=== PATIENT | male | born 1950 | race Caucasian/White ===

== ENCOUNTER 2017-03-01 08:43 | Inpatient (IN) | payer MEDICARE, SELFPAY ==
--- NOTE | ~2017-03-01 | CN ---
Consultation Report [facility] [place] [address] [place]. [address] NAME: CAROL NASSAR : 48 STATUS : ADM IN PAT#: [id number] AGE: 66 ADM/REG DATE : 03/01/17 MR#: [id number] REPORT SERV DATE: 03/03/17 DICTATED BY: YODIT DWYER DATE: 03/03/17 REPORT STATUS : Draft TRANSCRIBED BY: MODL DATE: 03/03/17 HOSPITALIST CONSULTATION DATE OF CONSULTATION: 03/02/2017 REASON FOR CONSULTATION: Diabetes management per Dr. Donovan Amaya. HISTORY OF PRESENT ILLNESS: This is an awake, alert and oriented, very pleasant 66-year-old, male, who was admitted today to Dr. Amaya for placement of AICD today in a patient with an extensive cardiac history. We have been asked to manage his diabetes while he is here. Currently, his most recent blood sugar by fingerstick is 424. The patient reports a 10-year history of diabetes with his metformin on hold until tomorrow (03/03) due to his recent procedure, and he also received Solu-Medrol today in procedure. The patient reports that his home blood sugars are well controlled, and he takes his medication exactly as prescribed. He does confirm he is a daily smoker and uses a CPAP machine as ordered at night. He is complaining at this time of shortness of breath with exertion that resolves with rest and oxygen placed by nasal cannula. He currently denies chest pain, palpitations, headaches, dizziness, nausea, vomiting, diarrhea, or abdominal pain. PAST MEDICAL HISTORY: Significant for: 1. Coronary artery disease. 2. DVT. 3. Dysrhythmias. 4. High cholesterol. 5. Hypertension. 6. Previous SC. 7. CHF. 8. Sleep apnea. 9. ARDS. 10.Pulmonary embolus. 11.Osteoarthritis. 12.GERD. 13.Hemorrhoids. 14.Prostate problems. 15.Type 2 diabetes. 16.Anxiety. PAST SURGICAL HISTORY: Significant for: 1. Cholecystectomy, 1995. 2. CABG x3, post cardiac cath, 1994. 3. Bessie filter placed, 1995. The patient's PCP is Dr. Julian Meza, and [facility]. SOCIAL HISTORY: The patient is and lives at home with his . He is retired as Consultation Report [place] [address] [place]. [address] NAME: CAROL NASSAR : 48 STATUS : ADM IN PAT#: [id number] AGE: 66 ADM/REG DATE : 03/01/17 MR#: [id number] REPORT SERV DATE: 03/03/17 DICTATED BY: YODIT DWYER DATE: 03/03/17 REPORT STATUS : Draft TRANSCRIBED BY: MODL DATE: 03/03/17 previously stated. He is a daily one pack per day smoker since age 14. He denies alcohol and illicit drug use. FAMILY HISTORY: Mother had a history of diabetes and with complications from CHF at age 60. Father at age 41 from a "massive heart attack." The patient also has one brother who from lung complications. Two other brothers who from heart attacks. He has two brothers who are currently living, one has survived a heart attack and one has no medical problems. ALLERGIES: 1. INCLUDE EKG PADS, ADHESIVE TAPE. 2. ASPIRIN. 3. VANCOMYCIN. 4. DICLOXACILLIN. HOME MEDICATIONS: Include: 1. Tylenol 650 mg p.o. twice daily. 2. Norvasc 5 mg p.o. daily. 3. Artificial tears 0.3 mL each eye p.r.n. 4. Aspirin enteric coated 81 mg p.o. daily. 5. Carvedilol 12.5 mg p.o. twice daily. 6. Zyrtec 10 mg p.o. at bedtime. 7. Lantus 70 units subcutaneous at bedtime. 8. Metformin ER 1000 mg p.o. twice daily. 9. Nitrostat 0.4 mg sublingual p.r.n. chest pain. 10.Prilosec 20 mg p.o. daily. 11.Penicillin-VK 250 mg p.o. q.12 hours. 12.Zocor 20 mg p.o. at bedtime. 13.Demadex 50 mg p.o. daily. 14.Unknown sedative reported as "flurazepam" 30 mg p.o. at bedtime. 15.Warfarin 5 mg p.o. daily. REVIEW OF SYSTEMS: A complete 10-point review of systems was negative except as per HPI. PHYSICAL EXAMINATION: VITAL SIGNS: T 98.6, P 64, RR 20, BP 131/60, SpO2 94% on 3 L nasal cannula. GENERAL: A well-appearing male, in no acute distress. NEUROLOGIC: Awake, alert, and oriented x3 without focal deficit. HEENT: Normocephalic, atraumatic without lymphadenopathy. NECK: Supple. No JVD. LUNGS: Scattered wheezes noted in bilateral upper lobes. Diminished in bilateral bases with normal respiratory effort. CV: Regular rate and rhythm. S1, S2 auscultated. ABDOMEN: Soft, round, and nontender. Bowel sounds hypoactive in all quadrants. No masses. Consultation Report [place] [id number] [facility] [place]. [address] NAME: CAROL NASSAR : 48 STATUS : ADM IN [facility]#: [id number] AGE: 66 ADM/REG DATE : 03/01/17 MR#: [id number] REPORT SERV DATE: 03/03/17 DICTATED BY: YODIT DWYER DATE: 03/03/17 REPORT STATUS : Draft TRANSCRIBED BY: KENNY DATE: 03/03/17 EXTREMITIES: No cyanosis, with normal distal pulses and cap refill within normal limits. Generalized edema to bilateral lower extremities. PSYCH: Normal affect. SKIN: Clean, dry, and intact with mucous membranes pink and moist. Surgical dressing clean, dry, and intact to left chest from AICD placement. LABS: Fingerstick blood sugar ranges since arrival, 94 to 424. BUN and creatinine 21 and 1.34. Serum glucose 193. ASSESSMENT AND PLAN: 1. Insulin-dependent type 2 diabetes mellitus. This is chronic. We will increase his sliding scale insulin to level 2 and given additional 10 units of NovoLog now rechecking his blood sugar at 2 a.m. We will continue his Levemir and metformin back tomorrow. Per standard of care, we will monitor his labs. 2. Tobacco abuse. The patient has smoked one pack a day since approximately age 14 and declines nicotine patch at this time. He also declines smoking cessation assistance during this admission; however, smoking cessation benefits were counseled and information was provided for resources to the patient and . 3. Sleep apnea. Again, this is chronic and patient is compliant with his CPAP at home. We will continue his home CPAP and encourage aggressive pulmonary toilet. We will provide oxygen p.r.n. as needed. 4. Dyspnea. The patient reports this has occurred with exertion and is likely related to the tobacco abuse, sleep apnea, and his recent procedure. Again, we will continue his home CPAP at night, aggressive pulmonary toilet, providing supplemental oxygen as needed, and encourage smoking cessation. 5. Post AICD placement that was done today, 03/02/[address] Amaya. The patient is currently on Tikosyn. We will defer management of this to the primary team and follow along with you. Thank you for this consult. We are pleased to follow this patient with you. This consult was completed through a thorough review of [employer], old records, [employer], and current chart as well as a thorough interview with the patient and . [facility] Yodit Dwyer NP / [id number] CC: Breonna Worthy M.D.
--- NOTE | ~2017-03-01 | DS ---
Discharge Summary [facility] [address] [place]. [address] NAME: CAROL NASSAR : 48 STATUS : DIS IN PAT#: [id number] AGE: 66 ADM/REG DATE : 03/01/17 MR#: [id number] REPORT SERV DATE: 03/17/17 DICTATED BY: NIVIA AMAYA DATE: 03/16/17 REPORT STATUS : Draft TRANSCRIBED BY: KENNY DATE: 03/16/17 Data Collection from hospitalization DISCHARGE DIAGNOSES: 1. Ischemic cardiomyopathy. 2. Ventricular tachycardia. 3. Paroxysmal atrial fibrillation. 4. Hypertension. 5. Type 2 diabetes mellitus. 6. Pulmonary hypertension. 7. Hyperlipidemia. 8. Tobacco use. CONSULTATIONS: Yodit Dwyer NP PROCEDURES PERFORMED: ICD implantation on 03/02/2017. MEDICATIONS: Tylenol 650 mg twice a day, Norvasc 5 mg daily, Brovana 15 mcg via inhaler twice a day, Refresh solution 0.3 mL as needed, aspirin 81 mg daily, Pulmicort 0.5 mg via inhaler twice a day, Coreg 25 mg twice a day, Zyrtec 10 mg at bedtime, Tikosyn 500 mcg twice a day, Lantus 70 units subcutaneously at bedtime, Fortamet 1000 mg twice a day, Nitrostat 0.4 mg sublingually as needed, Prilosec 20 mg daily, Pen VK 250 mg every 12 hours, Zocor 20 mg at bedtime, Demadex 50 mg daily, Ultram 50 mg every four hours as needed, flurazepam 30 mg at bedtime, and Jantoven 5 mg daily. CONDITION AT DISCHARGE: Stable. DISPOSITION: The patient was discharged home on an 1800-calorie cardiac/diabetic diet with activities as instructed. He would follow up with Dr. Julian Meza on 03/12/2017. He would follow up with Dr. Pedro Bellamy on 04/10/2017. He would follow up with Dr. Jonathon Sanchez on 04/19/2017. He would follow up with Dr. Nivia Amaya on 03/23/2017. He would follow up at the [facility] on 03/22/2017 and at the [facility] on 03/13/2017. HOSPITAL COURSE: This is a 66-year-old man. The patient has sick sinus syndrome, ischemic cardiomyopathy, and class III congestive heart failure. It was felt that he would need to undergo dual-chamber ICD implantation. He was in the hospital at this time for further evaluation and treatment. On the day following admission, the patient had no complaints. The patient was taken to the electrophysiology laboratory where he underwent the above-mentioned procedure. He tolerated this well, and there were no complications. This was performed by Dr. Real Herrera. Tikosyn loading began. The patient was seen by Yodit Dwyer regarding diabetes management. The patient reports a 10-year history of diabetes. His metformin was going to remain on hold until the following day due to his recent procedure. He also received some Solu-Medrol during his procedure. The patient said that at home his blood sugars are well controlled and that he takes his medication exactly as prescribed. He did confirm that he is a daily smoker and uses a CPAP machine as ordered at night. At this time, he was complaining of Discharge Summary [address] [address] NAME: CAROL NASSAR : 48 STATUS : DIS IN PAT#: [id number] AGE: 66 ADM/REG DATE : 03/01/17 MR#: [id number] REPORT SERV DATE: 03/17/17 DICTATED BY: NIVIA AMAYA DATE: 03/16/17 REPORT STATUS : Draft TRANSCRIBED BY: KENNY DATE: 03/16/17 shortness of breath with exertion that resolves with rest and oxygen by nasal cannula. Creatinine level was 1.34. Levemir and metformin were going to be continued. His sliding scale insulin was increased to level 2. The patient was encouraged to stop smoking. He declined a nicotine patch at this time. He also declined smoking cessation assistance during this admission. The patient is compliant with his CPAP at home. This would be continued and we encouraged aggressive pulmonary toilet. Oxygen would be provided as needed. The patient was currently on Tikosyn. On 03/03/2017, hemoglobin A1c was going to be checked. The patient was encouraged to lose weight. He said he was feeling better. Shortness of breath had decreased. He was in a sinus rhythm. On 03/04/2017, the patient did complain of some dyspnea when he was up to the bathroom. His postop hyperglycemia was felt likely steroid induced, it was now controlled. Insulin was decreased. He has had some volume overload the day previously. He was given Bumex. It was felt that he would need a home O2 evaluation prior to his discharge. He had mild edema. O2 saturation was 93% on 2 liters. The next day, he had distant breath sounds bilaterally. He desaturated overnight on BiPAP into the 80s. Home O2 was arranged. He was going to remain as an inpatient for another night for BiPAP adjustments. Hemoglobin A1c was 7.8. On 03/06/2017, he was alert and cooperative. He had no edema. Discharge instructions were given. Due to his improved and stable condition, he was discharged home with the above- stated instructions. Information collected by: Ilana Pollack I submit the above information as my discharge summary. TG/MODL Nivia Amaya M.D. / [id number] CC: Breonna Worthy M.D.
[~2017-03-01 08:43] MED LIST: ACET500CAP PO; ASA5GR PO; ASAEC PO; ATEN25 PO; ATEN50 PO; ATENOLOL PO; BETAP120 PO; BETAPACE80 PO; CORDARONE PO; COREG6 PO; DALMANE30 MG PO; DEMA100 PO; DIABETA5 PO; DILT-XR120 MG PO; DURICEF; DURICEF PO; Duricef PO; FLURAZEPAM30 MG PO; FORTAMET1000 MG PO; GLUCPH PO; HALF81 PO; JANTOVEN1 MG PO; JANTOVEN5 MG PO; JANTOVEN6 MG PO; JANTOVEN7.5 MG PO; L20 PO; LANTUS; LANTUS SC; LOTE10 PO; NATURA2 OP; NITROSTAT0.4 MG SL; NORV5 PO; PENVK250 PO; PREV15 PO; PRILO PO; REFRESH OPH; T PO; TYLENOL ARTH650 MG PO; ZOCOR20 PO; ZOCOR40 PO; ZYRTEC ALLGY10 MG PO; [UNRECOGNIZED DRUG - OTHER] PO
[2017-03-01 09:27] LABS: BASOPHILS 0.6 %; BASOPHILS ABSOLUTE 0.05 10/3/uL (0.0-0.16); EOSINOPHILS 2.3 %; HEMATOCRIT 47.5 % (40.0-51.0); HEMOGLOBIN 15.7 g/dL (13.6-17.8); IMMATURE GRANULOCYTES 0.3 %; IMMATURE GRANULOCYTES ABSOLUTE 0.03 10/3/uL (0.0-0.11); LYMPHOCYTES 27.8 %; LYMPHOCYTES ABSOLUTE 2.41 10/3/uL (0.67-4.30); MANUAL DIFF NO %; MEAN CORPUS HGB CONC 33.1 g/dL (32.0-36.0); MEAN CORPUSCULAR HEMOGLOB 26.7 pg (26.0-34.0); MEAN CORPUSCULAR VOLUME 80.6 fL (80-100); MEAN PLATELET VOLUME 9.9 fL (9.2-13.0); MONOCYTES 5.3 %; MONOCYTES ABSOLUTE 0.46 10/3/uL (0.21-1.20); NEUTROPHILS 63.7 %; NEUTROPHILS ABSOLUTE 5.51 10/3/uL (2.02-8.40); PLATELET COUNT 156 10/3/uL (150-400); RBC DISTRIBUTION WIDTH 16.9 % (12.0-16.0); RED CELL COUNT 5.89 10/6/uL (4.7-6.1); WHITE BLOOD CELLS 8.7 10/3/uL (4.5-10.5)
[2017-03-01 09:36] LABS: INTERNATIONAL NORMAL RATI 1.7 UNITS (-); PROTIME (NOT ORD) 19.4 SEC (12.0-14.5)
[2017-03-01 09:39] LABS: BUN (BLOOD UREA NITROGEN) 21 MG/DL (6-23); CALCIUM, SERUM 8.2 MG/DL (8.5-10.4); CHLORIDE, SERUM 105 MMOL/L (96-112); CO2 (CARBON DIOXIDE) 31 MMOL/L (24-34); CREATININE 1.49 MG/DL (0.70-1.30); GFR AFRICAN AMERICAN 55 ML/MIN (>=60); GFR NON AFRICAN AMERICAN 48 ML/MIN (>=60); GLUCOSE, SERUM 170 MG/DL (60-99); POTASSIUM, SERUM 4.4 MMOL/L (3.5-5.3); SODIUM, SERUM 142 MMOL/L (135-148)
[2017-03-02 03:54] LABS: INTERNATIONAL NORMAL RATI 1.5 UNITS (-); PROTIME (NOT ORD) 18.2 SEC (12.0-14.5)
[2017-03-02 04:03] LABS: BUN (BLOOD UREA NITROGEN) 21 MG/DL (6-23); CALCIUM, SERUM 8.6 MG/DL (8.5-10.4); CHLORIDE, SERUM 108 MMOL/L (96-112); CO2 (CARBON DIOXIDE) 28 MMOL/L (24-34); CREATININE 1.34 MG/DL (0.70-1.30); GFR AFRICAN AMERICAN 63 ML/MIN (>=60); GFR NON AFRICAN AMERICAN 54 ML/MIN (>=60); GLUCOSE, SERUM 193 MG/DL (60-99); SODIUM, SERUM 142 MMOL/L (135-148)
[2017-03-03 04:53] LABS: INTERNATIONAL NORMAL RATI 1.4 UNITS (-); PROTIME (NOT ORD) 16.7 SEC (12.0-14.5)
[2017-03-03 05:00] LABS: CALCIUM, SERUM 8.2 MG/DL (8.5-10.4); CHLORIDE, SERUM 105 MMOL/L (96-112); CO2 (CARBON DIOXIDE) 27 MMOL/L (24-34); CREATININE 1.66 MG/DL (0.70-1.30); GFR AFRICAN AMERICAN 49 ML/MIN (>=60); GFR NON AFRICAN AMERICAN 42 ML/MIN (>=60); POTASSIUM, SERUM 4.2 MMOL/L (3.5-5.3); SODIUM, SERUM 140 MMOL/L (135-148)
[2017-03-03 05:02] LABS: BUN (BLOOD UREA NITROGEN) 25 MG/DL (6-23); GLUCOSE, SERUM 244 MG/DL (60-99)
[2017-03-04 03:55] LABS: INTERNATIONAL NORMAL RATI 1.4 UNITS (-); PROTIME (NOT ORD) 16.8 SEC (12.0-14.5)
[2017-03-04 04:01] LABS: CALCIUM, SERUM 8.8 MG/DL (8.5-10.4); CHLORIDE, SERUM 100 MMOL/L (96-112); CREATININE 1.58 MG/DL (0.70-1.30); GFR AFRICAN AMERICAN 52 ML/MIN (>=60); GFR NON AFRICAN AMERICAN 45 ML/MIN (>=60); POTASSIUM, SERUM 3.8 MMOL/L (3.5-5.3); SODIUM, SERUM 140 MMOL/L (135-148)
[2017-03-04 04:02] LABS: BUN (BLOOD UREA NITROGEN) 36 MG/DL (6-23); CO2 (CARBON DIOXIDE) 33 MMOL/L (24-34); GLUCOSE, SERUM 124 MG/DL (60-99)
[2017-03-04 04:11] LABS: B NATRIURETIC PEPTIDE (BNP) 131.2 PG/ML (< 100.0)
[2017-03-04 13:26] LABS: GLYCOHEMOGLOBIN (HbA1c) 7.8 % (4.7-6.1)
[2017-03-05 04:05] LABS: INTERNATIONAL NORMAL RATI 1.3 UNITS (-)
[2017-03-05 04:15] LABS: CHLORIDE, SERUM 98 MMOL/L (96-112); CO2 (CARBON DIOXIDE) 29 MMOL/L (24-34); GFR AFRICAN AMERICAN 51 ML/MIN (>=60); GFR NON AFRICAN AMERICAN 44 ML/MIN (>=60); GLUCOSE, SERUM 121 MG/DL (60-99); POTASSIUM, SERUM 3.9 MMOL/L (3.5-5.3); SODIUM, SERUM 136 MMOL/L (135-148)
[2017-03-05 04:18] LABS: BUN (BLOOD UREA NITROGEN) 41 MG/DL (6-23)
[2017-03-06 06:13] LABS: BUN (BLOOD UREA NITROGEN) 40 MG/DL (6-23); CALCIUM, SERUM 8.7 MG/DL (8.5-10.4); CHLORIDE, SERUM 98 MMOL/L (96-112); CO2 (CARBON DIOXIDE) 30 MMOL/L (24-34); CREATININE 1.59 MG/DL (0.70-1.30); GFR AFRICAN AMERICAN 51 ML/MIN (>=60); GFR NON AFRICAN AMERICAN 44 ML/MIN (>=60); GLUCOSE, SERUM 120 MG/DL (60-99); POTASSIUM, SERUM 3.8 MMOL/L (3.5-5.3); SODIUM, SERUM 138 MMOL/L (135-148)
[2017-03-06 06:14] LABS: INTERNATIONAL NORMAL RATI 1.5 UNITS (-)
[2017-03-06] MEDS ORDERED: COREG25 PO (18:16)
[2017-03-06] MEDS ORDERED: BROVANA15 MCG INH (18:18)
[2017-03-06] MEDS ORDERED: ULTRAM50 PO (18:18)
[2017-03-06] MEDS ORDERED: TIKOSYN 500 M500 MCG PO (18:19)
[2017-03-06] MEDS ORDERED: PULRESP.5 INH (18:19)
[2017-06-01] MEDS ORDERED: DALMANE PO (16:03)
[2017-06-01] MEDS ORDERED: NORV5 PO (16:05)
[2017-06-05] MEDS ORDERED: CLEOCIN300 MG PO (10:01)
== END 2017-03-06 18:30 | disposition home or self-care (01) | DRG 226 ==
LOC: CORLMH 08:43 → SSU1 08:54 → CCU 03-03 09:48 → 5NO 03-04 19:57
PROVIDERS: Anesthesiology; Internal Medicine Cardiovascular Disease; Internal Medicine Clinical Cardiac Electrophysiology
PROC: 0JH608Z Insertion of Defibrillator Generator into Chest Subcutaneous Tissue and Fascia, Open Approach (ICD-10-PCS; principal; 2017-03-02)
PROC: 02HK3KZ Insertion of Defibrillator Lead into Right Ventricle, Percutaneous Approach (ICD-10-PCS; 2017-03-02)
PROC: 02H63KZ Insertion of Defibrillator Lead into Right Atrium, Percutaneous Approach (ICD-10-PCS; 2017-03-02)
DX: I47.2 Ventricular tachycardia (principal); J96.21 Acute and chronic respiratory failure with hypoxia; I13.0 Hypertensive heart and chronic kidney disease with heart failure and stage 1 through stage 4 chronic kidney disease, or unspecified chronic kidney disease; I50.22 Chronic systolic (congestive) heart failure; I25.10 Atherosclerotic heart disease of native coronary artery without angina pectoris; E78.00 Pure hypercholesterolemia, unspecified; I25.2 Old myocardial infarction; G47.33 Obstructive sleep apnea (adult) (pediatric); M19.90 Unspecified osteoarthritis, unspecified site; K21.9 Gastro-esophageal reflux disease without esophagitis; F41.9 Anxiety disorder, unspecified; F17.210 Nicotine dependence, cigarettes, uncomplicated; Z90.49 Acquired absence of other specified parts of digestive tract; Z86.718 Personal history of other venous thrombosis and embolism; Z86.711 Personal history of pulmonary embolism; Z98.890 Other specified postprocedural states; Z95.1 Presence of aortocoronary bypass graft; Z83.3 Family history of diabetes mellitus; Z82.49 Family history of ischemic heart disease and other diseases of the circulatory system; Z88.6 Allergy status to analgesic agent; Z88.1 Allergy status to other antibiotic agents; Z79.899 Other long term (current) drug therapy; Z79.82 Long term (current) use of aspirin; Z79.4 Long term (current) use of insulin; Z79.84 Long term (current) use of oral hypoglycemic drugs; Z79.01 Long term (current) use of anticoagulants; E11.22 Type 2 diabetes mellitus with diabetic chronic kidney disease; N18.3 Chronic kidney disease, stage 3 (moderate); J44.9 Chronic obstructive pulmonary disease, unspecified; I48.0 Paroxysmal atrial fibrillation; I25.5 Ischemic cardiomyopathy; E78.5 Hyperlipidemia, unspecified; E11.9 Type 2 diabetes mellitus without complications
CPT/HCPCS: 33249; 71010; 80048; 82962; 83036; 83735; 83880; 84100; 85025; 85610; 87641; 93005; 93641; 94640; A9270-GY; C1721; C1769; C1892; C1895; C1898; G0463; J0690; J2250; J2930; J3010; Q9967

== ENCOUNTER 2017-04-04 12:26 | Emergency (ER) | payer MEDICARE, SELFPAY ==
[~2017-04-04 12:26] MED LIST changes: +BROVANA15 MCG INH; +COREG25 PO; +PULRESP.5 INH; +TIKOSYN 500 M500 MCG PO; +ULTRAM50 PO
[2017-04-04 13:14] LABS: BASOPHILS 0.9 %; BASOPHILS ABSOLUTE 0.06 10/3/uL (0.0-0.16); EOSINOPHILS 1.5 %; ER CBC TAT 0 Hrs 11 Mins; HEMATOCRIT 46.8 % (40.0-51.0); HEMOGLOBIN 14.9 g/dL (13.6-17.8); IMMATURE GRANULOCYTES 0.5 %; IMMATURE GRANULOCYTES ABSOLUTE 0.03 10/3/uL (0.0-0.11); LYMPHOCYTES 30.6 %; LYMPHOCYTES ABSOLUTE 1.99 10/3/uL (0.67-4.30); MEAN CORPUS HGB CONC 31.8 g/dL (32.0-36.0); MEAN CORPUSCULAR HEMOGLOB 25.9 pg (26.0-34.0); MEAN CORPUSCULAR VOLUME 81.4 fL (80-100); MONOCYTES 5.7 %; MONOCYTES ABSOLUTE 0.37 10/3/uL (0.21-1.20); NEUTROPHILS 60.8 %; NEUTROPHILS ABSOLUTE 3.95 10/3/uL (2.02-8.40); PLATELET COUNT 124 10/3/uL (150-400); RED CELL COUNT 5.75 10/6/uL (4.7-6.1); WHITE BLOOD CELLS 6.5 10/3/uL (4.5-10.5)
[2017-04-04 13:15] LABS: MANUAL DIFF NO %
[2017-04-04 13:18] LABS: INTERNATIONAL NORMAL RATI 2.6 UNITS (-); PARTIAL THROMBO TIME 43.1 SEC (22.5-37.2)
[2017-04-04 13:28] LABS: PROTIME (NOT ORD) 27.2 SEC (12.0-14.5)
[2017-04-04 13:29] LABS: CALCIUM, SERUM 8.5 MG/DL (8.5-10.4); CHEST PAIN PROFILE TAT 0 Hrs 26 Mins; CHLORIDE, SERUM 98 MMOL/L (96-112); CO2 (CARBON DIOXIDE) 32 MMOL/L (24-34); CREATININE 1.69 MG/DL (0.70-1.30); GFR AFRICAN AMERICAN 48 ML/MIN (>=60); GFR NON AFRICAN AMERICAN 41 ML/MIN (>=60); POTASSIUM, SERUM 4.3 MMOL/L (3.5-5.3); SODIUM, SERUM 137 MMOL/L (135-148); TROPONIN I <0.02 NG/ML (<0.05)
[2017-04-04 13:31] LABS: BUN (BLOOD UREA NITROGEN) 21 MG/DL (6-23); GLUCOSE, SERUM 342 MG/DL (60-99)
[2017-04-04 13:43] LABS: ANISOCYTOSIS 1+ (5-10/OIF) (0-5/OIF); PLATELET ESTIMATE SLT DEC (ADEQUATE)
[2017-06-01] MEDS ORDERED: DALMANE PO (16:03)
[2017-06-01] MEDS ORDERED: NORV5 PO (16:05)
[2017-06-05] MEDS ORDERED: CLEOCIN300 MG PO (10:01)
== END 2017-04-04 16:50 | disposition home or self-care (01) ==
LOC: ER 12:26
PROVIDERS: Emergency Medicine
DX: R06.02 Shortness of breath (principal); R60.0 Localized edema; Z87.891 Personal history of nicotine dependence; I10 Essential (primary) hypertension; Z95.1 Presence of aortocoronary bypass graft; Z95.810 Presence of automatic (implantable) cardiac defibrillator; E11.9 Type 2 diabetes mellitus without complications; Z88.1 Allergy status to other antibiotic agents; Z88.6 Allergy status to analgesic agent; Z88.8 Allergy status to other drugs, medicaments and biological substances; Z79.01 Long term (current) use of anticoagulants; Z79.4 Long term (current) use of insulin; Z79.899 Other long term (current) drug therapy
CPT/HCPCS: 71020; 80048; 83735; 83880; 84484; 85025; 85610; 85730; 93005; 96374; 99284